=== PATIENT | female | born 1965 | race Caucasian/White ===

== ENCOUNTER 2017-08-11 07:30 | Day surgery (SDC) | payer MEDICAID ==
[~2017-08-11] VITALS: Ht 152.4 cm; Wt 68.0 kg
[2017-08-11] MEDS ORDERED: PANT40EC PO (08:21)
[2017-08-11] MEDS ORDERED: fentaNYL 0.05 MG/ML VIAL ONE (08:41)
[2017-08-11] MEDS ORDERED: LIDOCAINE 2% 100 MG/5 ML UJET TP ONE (08:41)
[2017-08-11] MEDS ORDERED: MIDAZOLAM 2 MG/2 ML VIAL ONE (08:41)
== END 2017-08-11 12:22 | disposition home or self-care (01) ==
LOC: MDS 07:30 → MMU 07:33 → MDS 12:22
PROVIDERS: ATTEND Internal Medicine Gastroenterology
DX: Z12.11 Encounter for screening for malignant neoplasm of colon (principal); K21.9 Gastro-esophageal reflux disease without esophagitis; E66.3 Overweight; Z79.899 Other long term (current) drug therapy
CPT/HCPCS: 45378; J3010; J7120; J2250; J7030